=== PATIENT | male | born 1985 | race Caucasian/White ===

== ENCOUNTER 2019-04-12 10:07 | Inpatient (IN) | payer MEDICAID, OTHER ==
[~2019-04-12] VITALS: Ht 160 cm; Wt 62.1 kg
[2019-04-12] MEDS ORDERED: SODIUM CHLORIDE 0.9% 1,000 ML IV ONE ×2 (10:31→10:45)
[2019-04-12] MEDS ORDERED: ONDANSETRON HCL 4MG/2ML INJ IV STA (10:31)
[2019-04-12 12:02] LABS: EOSINOPHILS % 4.3 % (0.0-5.0); HEMATOCRIT. 25.2 % (42.0-52.0); HEMOGLOBIN. 7.4 g/dL (14.0-18.0); LYMPHOCYTES % 30.7 % (20.0-50.0); MEAN CORPUSCULAR HEMOGLOBIN 22.4 pg (28.0-32.0); MEAN CORPUSCULAR VOLUME 76.4 fL (80.0-94.0); MEAN PLATELET VOLUME 7.2 fl (7.4-10.4); MONOCYTES % 9.1 % (2.0-8.0); NEUTROPHILS % 53.9 % (40.0-76.0); PLATELET 606 x1000/uL (130-400); RED CELL DISTRIBUTION WIDTH 22.1 % (11.6-14.6)
[2019-04-12 12:04] LABS: CHLORIDE 109 mEq/L (98-107)
[2019-04-12 12:16] LABS: *AMPHETAMINES SCREEN URINE NEGATIVE (NEGATIVE); *BARBITURATES SCREEN URINE NEGATIVE (NEGATIVE); *BENZODIAZEPINES SCREEN URINE NEGATIVE (NEGATIVE); *COCAINE SCREEN URINE NEGATIVE (NEGATIVE); METHADONE URINE SCREEN NEGATIVE (NEGATIVE); OPIATES URINE SCREEN NEGATIVE (NEGATIVE)
[2019-04-12 12:17] LABS: CANNABINOID URINE SCREEN NEGATIVE (NEGATIVE); PHENCYCLIDINE URINE SCREEN NEGATIVE (NEGATIVE)
[2019-04-12 12:22] LABS: ETHANOL BLOOD 370 mg/dL
[2019-04-12 12:38] LABS: PLATELET ESTIMATE INCREASED
[2019-04-12] MEDS ORDERED: PANTOPRAZOLE SODIUM 40 MG/VIAL IV STA (12:40)
[2019-04-12] MEDS ORDERED: OCTREOTIDE ACETATE 50 MCG/ML 1ML IV ONE (12:45)
[2019-04-12] MEDS ORDERED: OCTREOTIDE 1,000 MCG in SODIUM CHLORIDE 0.9% 100 ML IV ONE (12:45)
[2019-04-12] MEDS ORDERED: PANTOPRAZOLE 80 MG in SODIUM CHLORIDE 0.9% 80 ML IV ONE (12:45)
[2019-04-12] MEDS ORDERED: OCTREOTIDE 1,000 MCG in SODIUM CHLORIDE 0.9% 98 ML IV SCH (13:15)
[2019-04-12 18:40] VITALS: BP 113/73
[2019-04-12 20:00] VITALS: BP 119/84
[2019-04-12] MEDS ORDERED: ONDANSETRON HCL 4MG/2ML INJ IV PRN (20:15)
[2019-04-12] MEDS ORDERED: DIPHENHYDRAMINE 50MG/ML VIAL IV PRN (20:15)
[2019-04-12] MEDS ORDERED: CLONIDINE 0.1MG TABLET PO PRN (20:15)
[2019-04-12] MEDS ORDERED: ACETAMINOPHEN 325MG TABLET PO PRN (20:15)
[2019-04-12 22:00] VITALS: BP 103/74
[2019-04-12] MEDS ORDERED: MVI, ADULT NO.1 10 ML, FOLIC ACID 1 MG, THIAMINE HCL 100 MG in SODIUM CHLORIDE 0.9% 1,0... IV NR ×4 (22:00)
[2019-04-12 22:29] LABS: TOTAL IRON BINDING CAPACITY 472 ug/dL (250-450)
[2019-04-12] MEDS: DEXT 5%/0.45% NACL KCL 20MEQ/L 1,000 ML IV SCH (22:54)
[2019-04-12] MEDS: PANTOPRAZOLE SODIUM 40 MG/VIAL IV SCH (22:56)
[2019-04-12] MEDS: LORAZEPAM 2MG/ML CPJ IV PRN (23:49)
[2019-04-13] VITALS (13 sets, daily range): BP systolic 91–141; BP diastolic 54–85
[2019-04-13] MEDS: DEXT 5%/0.45% NACL KCL 20MEQ/L 1,000 ML IV SCH ×3 (05:59→21:05)
[2019-04-13 07:39] LABS: BASOPHILS % 1.7 % (0.0-2.0); EOSINOPHILS % 4.6 % (0.0-5.0); HEMATOCRIT. 25.9 % (42.0-52.0); LYMPHOCYTES % 16.4 % (20.0-50.0); MEAN CORPUSCULAR HEMOGLOBIN 24.1 pg (28.0-32.0); MEAN PLATELET VOLUME 7.5 fl (7.4-10.4); MONOCYTES % 9.8 % (2.0-8.0); NEUTROPHILS % 67.5 % (40.0-76.0); PLATELET 524 x1000/uL (130-400); RED BLOOD CELL COUNT 3.32 mill/uL (4.7-6.1); RED CELL DISTRIBUTION WIDTH 19.5 % (11.6-14.6)
[2019-04-13 08:09] LABS: CHLORIDE 110 mEq/L (98-107)
[2019-04-13] MEDS: PANTOPRAZOLE SODIUM 40 MG/VIAL IV SCH ×2 (08:38→21:05)
[2019-04-13] MEDS: LORAZEPAM 2MG/ML CPJ IV PRN ×2 (08:54→21:09)
[2019-04-13] MEDS: IRON SUCROSE COMPLEX 100 MG/5 ML ML IV SCH (17:21)
[2019-04-13] MEDS ORDERED: THIAMINE HCL 100 MG in SODIUM CHLORIDE 0.9% 49 ML IV NR (17:30)
[2019-04-13] MEDS ORDERED: MAGNESIUM 1 G PREMIX 100 ML IV NR (18:00)
[2019-04-13] MEDS: CHLORDIAZEPOXIDE 25MG CAPSULE PO SCH (21:05)
[2019-04-14] VITALS (13 sets, daily range): BP systolic 109–140; BP diastolic 64–101
[2019-04-14] MEDS: DEXT 5%/0.45% NACL KCL 20MEQ/L 1,000 ML IV SCH ×3 (05:15→21:16)
[2019-04-14] MEDS: CHLORDIAZEPOXIDE 25MG CAPSULE PO SCH ×3 (05:18→21:17)
[2019-04-14 05:48] LABS: HEMATOCRIT 26.1 % (42.0-52.0); HEMOGLOBIN 8.2 g/dL (14.0-18.0); MEAN CORPUSCULAR VOLUME 76.4 fL (80.0-94.0); PLATELET 571 x1000/uL (130-400); RED BLOOD CELL COUNT 3.42 mill/uL (4.7-6.1); RED CELL DISTRIBUTION WIDTH 20.8 % (11.6-14.6)
[2019-04-14] MEDS: PANTOPRAZOLE SODIUM 40 MG/VIAL IV SCH ×2 (08:13→21:16)
[2019-04-14] MEDS ORDERED: PROPOFOL 200MG/20ML VIAL IV ONE (14:58)
[2019-04-14] MEDS ORDERED: MIDAZOLAM HCL 5 MG/5 ML VIAL ONE (14:58)
[2019-04-14] MEDS: IRON SUCROSE COMPLEX 100 MG/5 ML ML IV SCH (16:31)
[2019-04-14] MEDS: SUCRALFATE 1 G/10 ML UDC PO SCH ×2 (16:31→21:16)
[2019-04-14] MEDS: LORAZEPAM 2MG/ML CPJ IV PRN (21:17)
[2019-04-15] VITALS (12 sets, daily range): BP systolic 105–125; BP diastolic 70–95
[2019-04-15] MEDS: CHLORDIAZEPOXIDE 25MG CAPSULE PO SCH ×3 (05:27→21:39)
[2019-04-15] MEDS: DEXT 5%/0.45% NACL KCL 20MEQ/L 1,000 ML IV SCH ×3 (05:27→21:49)
[2019-04-15] MEDS: SUCRALFATE 1 G/10 ML UDC PO SCH ×4 (09:02→21:39)
[2019-04-15] MEDS: PANTOPRAZOLE SODIUM 40 MG/VIAL IV SCH ×2 (09:02→21:39)
[2019-04-15 12:17] LABS: BASOPHILS % 1.3 % (0.0-2.0); HEMATOCRIT. 28.2 % (42.0-52.0); HEMOGLOBIN. 8.8 g/dL (14.0-18.0); MEAN CORPUSCULAR HEMOGLOBIN 24.2 pg (28.0-32.0); MEAN CORPUSCULAR VOLUME 77.8 fL (80.0-94.0); MEAN PLATELET VOLUME 7.4 fl (7.4-10.4); MONOCYTES % 9.6 % (2.0-8.0); NEUTROPHILS % 63.1 % (40.0-76.0); PLATELET 544 x1000/uL (130-400); RED BLOOD CELL COUNT 3.63 mill/uL (4.7-6.1)
[2019-04-15 12:22] LABS: CHLORIDE 111 mEq/L (98-107)
[2019-04-15] MEDS: IRON SUCROSE COMPLEX 100 MG/5 ML ML IV SCH (17:09)
[2019-04-16] VITALS (13 sets, daily range): BP systolic 101–133; BP diastolic 68–93
[2019-04-16 06:04] LABS: BASOPHILS % 0.8 % (0.0-2.0); EOSINOPHILS % 10.5 % (0.0-5.0); HEMATOCRIT. 26.7 % (42.0-52.0); HEMOGLOBIN. 8.5 g/dL (14.0-18.0); LYMPHOCYTES % 14.3 % (20.0-50.0); MEAN CORPUSCULAR HEMOGLOBIN 24.5 pg (28.0-32.0); MEAN CORPUSCULAR VOLUME 77.1 fL (80.0-94.0); MEAN PLATELET VOLUME 7.6 fl (7.4-10.4); MONOCYTES % 11.5 % (2.0-8.0); NEUTROPHILS % 62.9 % (40.0-76.0); PLATELET 533 x1000/uL (130-400); RED BLOOD CELL COUNT 3.47 mill/uL (4.7-6.1); RED CELL DISTRIBUTION WIDTH 20.6 % (11.6-14.6)
[2019-04-16] MEDS: CHLORDIAZEPOXIDE 25MG CAPSULE PO SCH ×3 (06:07→20:50)
[2019-04-16] MEDS: DEXT 5%/0.45% NACL KCL 20MEQ/L 1,000 ML IV SCH ×2 (06:08→13:02)
[2019-04-16 06:23] LABS: PHOSPHORUS 4.7 mg/dL (2.5-4.9)
[2019-04-16] MEDS: SUCRALFATE 1 G/10 ML UDC PO SCH ×4 (08:58→20:49)
[2019-04-16] MEDS: PANTOPRAZOLE SODIUM 40 MG/VIAL IV SCH (08:58)
[2019-04-16] MEDS: PANTOPRAZOLE 40MG DR TABLET PO SCH (20:49)
[2019-04-17] VITALS (9 sets, daily range): BP systolic 99–112; BP diastolic 65–87
[2019-04-17] MEDS: CHLORDIAZEPOXIDE 25MG CAPSULE PO SCH ×3 (05:02→22:10)
[2019-04-17] MEDS: PANTOPRAZOLE 40MG DR TABLET PO SCH ×2 (09:31→22:10)
[2019-04-17] MEDS: SUCRALFATE 1 G/10 ML UDC PO SCH ×4 (09:31→22:10)
[2019-04-17 10:23] LABS: HEMATOCRIT 30.2 % (42.0-52.0); HEMOGLOBIN 9.5 g/dL (14.0-18.0); MEAN CORPUSCULAR HEMOGLOBIN 24.7 pg (28.0-32.0); MEAN CORPUSCULAR VOLUME 78.9 fL (80.0-94.0); PLATELET 583 x1000/uL (130-400); RED BLOOD CELL COUNT 3.83 mill/uL (4.7-6.1); RED CELL DISTRIBUTION WIDTH 21.1 % (11.6-14.6)
[2019-04-17] MEDS: FERROUS SULFATE 325MG TABLET PO SCH ×2 (12:10→17:01)
[2019-04-17] MEDS: DOCUSATE SODIUM 250MG CAPSULE PO SCH ×2 (12:10→17:01)
[2019-04-17 13:21] LABS: T4 FREE 1.06 ng/dL (0.76-1.46)
[2019-04-18] VITALS: BP 116/81
[2019-04-18 02:00] VITALS: BP 110/71
[2019-04-18 04:00] VITALS: BP 108/76
[2019-04-18] MEDS: CHLORDIAZEPOXIDE 25MG CAPSULE PO SCH ×2 (05:23→13:37)
[2019-04-18] MEDS: SUCRALFATE 1 G/10 ML UDC PO SCH ×2 (06:49→12:29)
[2019-04-18 08:00] VITALS: BP 108/73
[2019-04-18] MEDS: FERROUS SULFATE 325MG TABLET PO SCH ×2 (08:50→12:29)
[2019-04-18] MEDS: DOCUSATE SODIUM 250MG CAPSULE PO SCH (08:50)
[2019-04-18] MEDS: PANTOPRAZOLE 40MG DR TABLET PO SCH (08:50)
[2019-04-18] MEDS ORDERED: THIAMINE HCL 100MG TABLET PO SCH (09:00)
[2019-04-18] MEDS ORDERED: FOLIC ACID 1MG TABLET PO SCH (09:00)
[2019-04-18] MEDS ORDERED: ASCORBIC ACID 500 MG TABLET PO SCH (09:00)
[2019-04-18 12:00] VITALS: BP 107/72
[2019-04-18 13:17] VITALS: BP 107/72
[2019-04-18 16:02] LABS: BASOPHILS % 1.2 % (0.0-2.0); EOSINOPHILS % 8.1 % (0.0-5.0); HEMATOCRIT. 29.2 % (42.0-52.0); HEMOGLOBIN. 9.1 g/dL (14.0-18.0); LYMPHOCYTES % 13.5 % (20.0-50.0); MEAN CORPUSCULAR HEMOGLOBIN 24.9 pg (28.0-32.0); MEAN PLATELET VOLUME 7.7 fl (7.4-10.4); MONOCYTES % 10.2 % (2.0-8.0); PLATELET 560 x1000/uL (130-400); RED BLOOD CELL COUNT 3.65 mill/uL (4.7-6.1); RED CELL DISTRIBUTION WIDTH 22.1 % (11.6-14.6)
[2019-04-18 16:25] LABS: CHLORIDE 108 mEq/L (98-107)
== END 2019-04-18 17:00 | disposition home or self-care (01) | DRG 775 ==
LOC: EDBD 10:07 → ER 10:39 → 5EST 13:58 → EDBEDREQ 14:03 → ENRESERV 17:33 → 5EST 18:40
PROVIDERS: ADMIT Internal Medicine; ATTEND Internal Medicine
PROC: 30233N1 Transfusion of Nonautologous Red Blood Cells into Peripheral Vein, Percutaneous Approach (ICD-10-PCS; 2019-04-12)
PROC: 0DB68ZX Excision of Stomach, Via Natural or Artificial Opening Endoscopic, Diagnostic (ICD-10-PCS; principal; 2019-04-14)
PROC: 0D748ZZ Dilation of Esophagogastric Junction, Via Natural or Artificial Opening Endoscopic (ICD-10-PCS; 2019-04-14)
DX: F10.229 Alcohol dependence with intoxication, unspecified (principal); E43 Unspecified severe protein-calorie malnutrition; K22.11 Ulcer of esophagus with bleeding; K29.21 Alcoholic gastritis with bleeding; F10.239 Alcohol dependence with withdrawal, unspecified; K22.2 Esophageal obstruction; D50.9 Iron deficiency anemia, unspecified; F17.210 Nicotine dependence, cigarettes, uncomplicated; R00.0 Tachycardia, unspecified; F41.9 Anxiety disorder, unspecified; Y90.8 Blood alcohol level of 240 mg/100 ml or more; Z79.899 Other long term (current) drug therapy; Z87.11 Personal history of peptic ulcer disease; Z71.41 Alcohol abuse counseling and surveillance of alcoholic; Z68.24 Body mass index [BMI] 24.0-24.9, adult
CPT/HCPCS: 36415; 80048; 80053; 80305; 80320; 82270; 83540; 83550; 83735; 84100; 84439; 84443; 85025; 85027; 86850; 86900; 86920; 88305; 88313; 93306; 93970; 99291; C9113; J2060; J2250; J2354; J2405; J2704; J3411; J3475; J3490; J7030; J7040; J7050; P9016; G0480